=== PATIENT | female | born 1965 | race American Indian/Alaskan Native ===

== ENCOUNTER 2018-10-16 22:24 | Emergency (ER) | payer OTHER ==
[2018-10-17 00:56] VITALS: BP 172/95; PULSE 86; TEMP 98.7
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
[2018-10-17 00:57] VITALS: O2SAT 98
[2018-10-17 02:08] VITALS: RESP 20
--- NOTE | 2018-10-17 08:35 | CT ---
Date of service: 10/16/2018 PROCEDURE: CT HEAD WITHOUT CONTRAST. HISTORY: head injury COMPARISON: None available. TECHNIQUE: Axial computed tomography images were obtained through the head/brain without intravenous contrast. Radiation dose: Total exam DLP = 1059.67 mGy-cm. This CT exam was performed using one or more of the following dose reduction techniques: Automated exposure control, adjustment of the mA and/or kV according to patient size, and/or use of iterative reconstruction technique. FINDINGS: HEMORRHAGE: No intracranial hemorrhage. BRAIN: Ribeiro-white matter differentiation is preserved. There is no mass, mass effect or abnormal extra-axial fluid collection. There is no territorial infarction. The midline sagittal structures are normal. VENTRICLES: The ventricles are normal in size, shape and configuration. CALVARIUM: There is no calvarial fracture. Moderate sized left frontal and periorbital soft tissue hematoma. PARANASAL SINUSES: There is mild mucosal thickening in the right posterior ethmoid air cell. The remaining included paranasal sinuses are predominantly clear. MASTOID AIR CELLS: Predominantly clear. OTHER FINDINGS: None. IMPRESSION: No acute intracranial abnormality. Moderate size left frontal and periorbital soft tissue hematoma. A preliminary report was provided by [facility].
--- NOTE | 2018-10-17 08:41 | CT ---
Date of service: 10/16/2018 PROCEDURE: CT MAXILLOFACIAL BONES WITHOUT CONTRAST HISTORY: pain, swelling to left orbital area and forehead COMPARISON: None available. TECHNIQUE: Contiguous axial CT images of the maxillofacial bones were obtained. Coronal and sagittal reformats were generated. Radiation dose: Total exam DLP = 706.57 mGy-cm. This CT exam was performed using one or more of the following dose reduction techniques: Automated exposure control, adjustment of the mA and/or kV according to patient size, and/or use of iterative reconstruction technique. FINDINGS: NASAL BONES: No acute fracture. ORBITS: The globes are symmetric without evidence for acute orbital injury or acute fracture. PARANASAL SINUSES/ MASTOIDS: Mild mucosal thickening in the right posterior ethmoid air cell. The remaining included paranasal sinuses and mastoid air cells are clear. MAXILLA: No acute maxillofacial fracture. MANDIBLE/ TEMPOROMANDIBULAR JOINTS: No acute fracture or dislocation. SKULL BASE: Unremarkable. TEMPORAL BONES: Middle ears and mastoid grossly unremarkable. OTHER FINDINGS: There is moderate sized left frontal and periorbital soft tissue hematoma.. IMPRESSION: No acute nasal bone, orbital or maxillofacial fracture. Moderate size right frontal and periorbital soft tissue hematoma. A preliminary report was provided by [facility].
== END 2018-10-17 01:10 | disposition home or self-care (01) ==
LOC: C.ER 22:24
DX: S00.83XA Contusion of other part of head, initial encounter (principal); Y04.0XXA Assault by unarmed brawl or fight, initial encounter